=== PATIENT | male | born 1965 | race Caucasian/White ===

== ENCOUNTER 2022-03-26 21:40 | Emergency (ER) | payer SELFPAY ==
[~2022-03-26] VITALS: Ht 180.3 cm; Wt 110.4 kg
[2022-03-26 22:09] VITALS: BP 127/85
== END 2022-03-27 01:03 | disposition home or self-care (01) ==
LOC: ER 21:40
DX: S01.91XA Laceration without foreign body of unspecified part of head, initial encounter (principal); X58.XXXA Exposure to other specified factors, initial encounter; Y93.89 Activity, other specified; Y92.89 Other specified places as the place of occurrence of the external cause; Y99.8 Other external cause status
CPT/HCPCS: 99282